=== PATIENT | male | born 1995 | race Caucasian/White ===

== ENCOUNTER 2018-01-18 17:28 | Observation (INO) | END 2018-01-19 14:59 | disposition home or self-care (01) ==

== ENCOUNTER 2018-04-26 12:05 | Day surgery (SDC) | END 2018-04-26 18:39 | disposition home or self-care (01) ==

== ENCOUNTER 2018-04-29 01:06 | Emergency (ER) | END 2018-04-29 05:34 | disposition left against medical advice (07) ==